=== PATIENT | female | born 1985 | race Caucasian/White ===

== ENCOUNTER 2020-02-10 18:40 | Emergency (ER) | payer BC, SELFPAY ==
[2020-02-10 18:45] VITALS: BP 155/70; PULSE 78; RESP 20; TEMP 36.8; O2SAT 99
[2020-02-10 18:59] VITALS: BP 155/70; PULSE 78; RESP 20; TEMP 36.8; O2SAT 99
--- NOTE | 2020-02-10 19:04 | ED.EAR ---
HPI - Ear Problem General Chief complaint: Ear Stated complaint: Ear infection Time Seen by Provider: 02/10/20 19:05 Source: patient and RN notes reviewed Mode of arrival: ambulatory Limitations: no limitations History of Present Illness HPI Narrative: 34-year-old female who presents to [facility] care with complaints of pain to her left ear with popping since the 06 of February. Patient states that she has bilateral ear tubes which were placed in 2018 and has some clear drainage from her ears usually and has not changed recently. She states that she takes daily Zyrtec, Montelukast, and Flonase nasal spray for sinus allergies. Patient denies any sore throat or any sinus congestion or cough. Patient states that her left ear has a constant dull ache has taken some Ibuprofen. MD Complaint: ear pain Location: left ear Duration: constant Severity: mild Discharge from ear: Reports yes - clear Associated symptoms ear: decreased hearing and rhinorrhea Treatment prior to arrival: none and other (Ibuprofen) Related Data Home Medications Medication Instructions Recorded Confirmed bupropion HCl 150 mg PO BID 02/10/20 02/10/20 fluoxetine 20 mg PO DAILY 02/10/20 02/10/20 fluticasone propionate 2 spray INTRANASAL DAILY 02/10/20 02/10/20 loratadine 10 mg PO DAILY 02/10/20 02/10/20 montelukast 10 mg PO DAILY 02/10/20 02/10/20 trazodone 50 mg PO DAILY 02/10/20 02/10/20 Allergies Allergy/AdvReac Type Severity Reaction Status Date / Time Penicillins Allergy Mild Rash Verified 02/10/20 18:54 Review of Systems Review of Systems: Narrative: CONSTITUTIONAL: Denies fever, chills, or sweats. EYES: Denies visual changes, redness, or discharge. ENT: Denies rhinorrhea, congestion, sore throat, positive for left otalgia. CARDIOVASCULAR: Denies chest pain, palpitations, or edema. RESPIRATORY: Denies cough or dyspnea. GASTROINTESTINAL: Denies abdominal pain, nausea, vomiting, or diarrhea. GENITOURINARY: Denies dysuria or hematuria. SKIN: Denies rash or itching. MUSCULOSKELETAL: Denies back pain, joint pain, or myalgia. NEUROLOGIC: Denies headache, numbness, or weakness. PSYCHIATRIC: Positive history of anxiety or depression. All systems reviewed & are unremarkable except as noted in HPI and below PMFSH Past Medical History Medical History (Updated 02/10/20 @ 19:45 by Yamileth Manuel NP) Allergic sinusitis Anxiety and depression Ear infection Insomnia Surgical History Surgical History (Updated 02/10/20 @ 19:05 by Yamileth Manuel NP) History of placement of ear tubes Social History Social History (Updated 02/10/20 @ 19:45 by Yamileth Manuel NP) Smoking status: Never smoker Alcohol intake: unknown Substance use: never Living arrangements: with family Gender identity (if verbalized by the patient): Female Comments At time of signature, agree with nursing past medical, surgical, social and family history. There is no relevant family history pertinent to the presenting complaint Exam Narrative: Exam Narrative: GENERAL: Well-appearing, well-nourished, and in no acute distress. HEAD: Normocephalic, atraumatic. EYES: PERRLA and EOMI. ENT: Nares clear, no rhinorrhea or epistaxis. Mucous membranes moist.TM's left normal with tube present without redness or noted drainage, left ear TM red with ear tube present clear drainage noted and pain stated by patient, throat pink with no exudates or lesions, no tonsil enlargement NECK: Supple.no lymphadenopathy CHEST: Clear to auscultation. No respiratory distress.SAO2 99% on room air. HEART: Regular rate and rhythm. No murmur heard. Normal peripheral pulses. ABDOMEN: Soft, nontender, nondistended, normal active bowel sounds. EXTREMITIES: Normal range of motion. No edema. SKIN: Warm, dry, no rash. NEURO: No focal deficits. Alert and oriented x3. Course Vital Signs Vital signs: Vital Signs Temperature 36.8 C 02/10/20 18:45 Pulse Rate 78 02/10/20 18:45 Respiratory Rate
== END 2020-02-10 19:25 | disposition home or self-care (01) ==
PROVIDERS: Emergency Provider Registered Nurse; PCP Internal Medicine
DX: H65.02 Acute serous otitis media, left ear (principal); F41.9 Anxiety disorder, unspecified; F32.9 Major depressive disorder, single episode, unspecified
CPT/HCPCS: 99213; G0463

== ENCOUNTER 2020-07-20 12:47 | Emergency (ER) | payer OTHER, BC, SELFPAY ==
[2020-07-20 12:56] VITALS: BP 128/73; PULSE 67; RESP 16; TEMP 37.6; O2SAT 100
--- NOTE | 2020-07-20 13:38 | ED.FEMALEGU ---
HPI - Female Genitourinary General Chief complaint: Urogenital-Female Stated complaint: pos uti Time Seen by Provider: 07/20/20 13:14 Source: patient and RN notes reviewed Mode of arrival: ambulatory Limitations: no limitations History of Present Illness HPI Narrative: Patient presents today complaining of a 2-day history of dysuria, urgency, cloudy urine, lower abdominal pressure, and today she noted blood on her toilet paper when she wiped. Denies fever or back pain. She has been taking Azo for symptoms with mild relief. She is a non-smoker. Last menstrual cycle was 06/28/2020. No recent antibiotic use. MD elicited complaint: dysuria Related Data Home Medications Medication Instructions Recorded Confirmed trazodone 50 mg PO DAILY 02/10/20 07/20/20 bupropion HCl [Wellbutrin SR] 200 mg PO BID 07/20/20 07/20/20 Allergies Allergy/AdvReac Type Severity Reaction Status Date / Time Penicillins Allergy Mild Rash Verified 07/20/20 12:56 Review of Systems Review of Systems: Narrative: CONSTITUTIONAL: Denies body aches, fever, chills, or sweats. EYES: Denies visual changes, redness, or discharge. ENT: Denies rhinorrhea, congestion, sore throat, or otalgia. CARDIOVASCULAR: Denies chest pain, palpitations, or edema. RESPIRATORY: Denies cough or dyspnea. GASTROINTESTINAL: Denies abdominal pain, nausea, vomiting, or diarrhea. GENITOURINARY: + Dysuria, urgency, cloudy urine, hematuria, lower abdominal pressure SKIN: Denies rash, itching, or wounds. MUSCULOSKELETAL: Denies back pain, joint pain, or myalgia. NEUROLOGIC: Denies headache, numbness, tingling, or weakness. PSYCH: Denies depression or anxiety. [facility] Past Medical History Medical History (Updated 07/20/20 @ 13:41 by Kathrine Severino, RA, BC) Allergic sinusitis Anxiety and depression Delivery with history of Ear infection Insomnia Surgical History Surgical History History of placement of ear tubes Social History Social History Smoking status: Never smoker Alcohol intake: unknown Substance use: never Gender identity (if verbalized by the patient): Female Exam Narrative: Exam Narrative: GENERAL: Well-appearing, well-nourished, and in no acute distress. HEAD: Normocephalic, atraumatic. EYES: EOMI. No redness or drainage. Conjunctivae normal. ENT: Mucous membranes pink and moist. NECK: Normal AROM. CHEST: No respiratory distress. Clear to auscultation. HEART: Regular rate and rhythm. No murmur appreciated. Normal peripheral pulses. ABDOMEN: Soft, nontender, nondistended, normal active bowel sounds.-CVAT MUSCULOSKELETAL: No bony tenderness. EXTREMITIES: Normal range of motion. No edema. SKIN: Warm, dry, no rash. Capillary refill normal. Normal skin turgor. NEURO: No focal deficits. Alert and oriented x3. Gait steady. PSYCH: Normal affect. No signs of depression or anxiety. Course Vital Signs Vital signs: Vital Signs Temperature 99.6 F 07/20/20 12:56 Pulse Rate 67 07/20/20 12:56 Respiratory Rate 16 07/20/20 12:56 Blood Pressure 128/73 07/20/20 12:56 Pulse Oximetry 100 07/20/20 12:56 Temperature 99.6 F 07/20/20 12:56 Pulse Rate 67 07/20/20 12:56 Respiratory Rate 16 07/20/20 12:56 Blood Pressure 128/73 07/20/20 12:56 Pulse Oximetry 100 07/20/20 12:56 Reviewed. Pt has been instructed to follow up with her PCP regarding her elevated blood pressure today. MDM - Female Genitourinary Differential Diagnosis Differential diagnosis: Likely urinary tract infection, vaginitis, cystitis and other (Interstitial cystitis) Lab Data Attestation: I reviewed the patient's lab results. Labs: Urine Glucose Negative Reference Range: Negative Urine Bilirubin Negative
== END 2020-07-20 13:48 | disposition home or self-care (01) ==
PROVIDERS: Emergency Provider Nurse Practitioner; PCP Internal Medicine
DX: N39.0 Urinary tract infection, site not specified (principal); F41.9 Anxiety disorder, unspecified; F32.9 Major depressive disorder, single episode, unspecified
CPT/HCPCS: 81003; 87086; 99213; G0463

== ENCOUNTER 2020-12-24 08:15 | Emergency (ER) | payer OTHER, SELFPAY ==
[2020-12-24 08:21] VITALS: BP 108/66; PULSE 66; RESP 16; TEMP 36.6; O2SAT 99
--- NOTE | 2020-12-24 08:26 | ED.EAR ---
HPI - Ear Problem General Chief complaint: Ear Stated complaint: ear pain left ear History of Present Illness HPI Narrative: This is a 35-year-old female comes in complaining of ear pain states that not being able to hear is driving her crazy. Patient states that she has tubes in her ears she is already has some hearing loss but she is it is driving her crazy w not being able to hear. Related Data Home Medications Medication Instructions Recorded Confirmed bupropion HCl 200 mg PO BID 12/24/20 12/24/20 trazodone 50 mg PO DAILY 12/24/20 12/24/20 Allergies Allergy/AdvReac Type Severity Reaction Status Date / Time Penicillins Allergy Mild Rash Verified 07/20/20 12:56 Review of Systems Review of Systems: ear pain , hearing loss All systems reviewed & are unremarkable except as noted in HPI and below PMFSH Past Medical History Medical History (Updated 12/24/20 @ 08:31 by Karen Mojica, JAZ) Allergic sinusitis Anxiety and depression Delivery with history of Ear infection Insomnia Surgical History Surgical History History of placement of ear tubes Social History Social History Smoking status: Never smoker Alcohol intake: unknown Substance use: never Gender identity (if verbalized by the patient): Female Comments Review of systems at time as signature, I have reviewed and agree with nursing past medical, social, surgical and family history. Please see nursing chart for further information. There is no relevant family history pertinent to the presenting complaint. Exam Narrative: GENERAL:Well-appearing, well-nourished, and in no acute distress. HEAD:Normocephalic, EYES: PERRLA ENT: Nares clear, no rhinorrhea or epistaxis. bilateral ear tubes noted left ear has auditory canal edema with erythma with white pus like noted area surrounding the tubes and ear. CHEST: Clear to auscultation. No respiratory distress. HEART: Regular rate and rhythm.. ABDOMEN: Soft, nontender, nondistended, normal active bowel sounds. EXTREMITIES: Normal range of motion. No edema. SKIN: Warm, dry, no rash. NEURO: No focal deficits. Alert and oriented x3. Course Vital Signs Vital signs: Vital Signs Temperature 97.8 F 12/24/20 08:21 Pulse Rate 66 12/24/20 08:21 Respiratory Rate 16 12/24/20 08:21 Blood Pressure 108/66 12/24/20 08:21 Pulse Oximetry 99 12/24/20 08:21 Temperature 97.8 F 12/24/20 08:21 Pulse Rate 66 12/24/20 08:21 Respiratory Rate 16 12/24/20 08:21 Blood Pressure 108/66 12/24/20 08:21 Pulse Oximetry 99 12/24/20 08:21 Medical Decision Making Vital Signs Vital Signs: Vital Signs Temperature 97.8 F 12/24/20 08:21 Pulse Rate 66 12/24/20 08:21 Respiratory Rate 16 12/24/20 08:21 Blood Pressure 108/66 12/24/20 08:21 Pulse Oximetry 99 12/24/20 08:21 Temperature 97.8 F 12/24/20 08:21 Pulse Rate 66 12/24/20 08:21 Respiratory Rate 16 12/24/20 08:21 Blood Pressure 108/66 12/24/20 08:21 Pulse Oximetry 99 12/24/20 08:21 Discharge Plan Discharge Clinical Impression: Otitis externa Qualifiers: Otitis externa type: unspecified type Chronicity: chronic Laterality: right Qualified Code(s): H60.61 - Unspecified chronic otitis externa, right ear Patient Disposition: Home, Self-Care Condition: Stable Instructions: Antibiotic Form, Swimmer's Ear (ED), Hearing Loss (ED), Earache (ED) Prescriptions: New ciprofloxacin-dexamethasone [Ciprodex] 0.3-0.1 % drops,suspension 4 drp LEFT EAR Q12H 7 Days Qty: 7.5 RF: 0 No Action bupropion HCl 200 mg tablet sustained-release 12 hr 200 mg PO BID RF: 0 trazodone 50 mg tablet 50 mg PO DAILY RF: 0 Follow-up/Referrals: [facility],MD Jason [Primary Care Provider] - Stand Alone Forms: Work/School Release IP Time of Disposition:
[2020-12-24 08:27] VITALS: BP 108/66; PULSE 66; RESP 16; TEMP 36.6; O2SAT 99
== END 2020-12-24 08:44 | disposition home or self-care (01) ==
PROVIDERS: Emergency Provider Nurse Practitioner Family; PCP Internal Medicine
DX: H60.62 Unspecified chronic otitis externa, left ear (principal); F41.9 Anxiety disorder, unspecified; F32.9 Major depressive disorder, single episode, unspecified
CPT/HCPCS: 99213; G0463

== ENCOUNTER 2022-05-13 19:09 | Emergency (ER) | payer OTHER, SELFPAY ==
[2022-05-13 19:16] VITALS: BP 118/63; PULSE 76; RESP 20; TEMP 36.7; O2SAT 100
--- NOTE | 2022-05-13 19:24 | ED.URI ---
HPI - URI/Sore Throat General Chief Complaint: Upper Respiratory Infection Stated Complaint: sore throat Time Seen by Provider: 05/13/22 19:15 History of Present Illness HPI Narrative: Patient is a 36-year-old female presents to urgent care with complaints of a sore throat. Patient states that her throat started hurting last night. Denies any other upper respiratory complaints. Denies any fever, nausea or vomiting. Patient has taken Tylenol for her pain. No other acute complaints. No acute distress noted. Patient aware of the plan of care. Some parts of this dictation were generated by voice recognition software and may contain typographical and/or grammatical inaccuracies. Related Data Home Medications Medication Instructions Recorded Confirmed bupropion HCl 200 mg tablet,12 hr 200 mg PO BID 12/24/20 12/24/20 sustained-release trazodone 50 mg tablet 50 mg PO DAILY 12/24/20 12/24/20 Allergies Allergy/AdvReac Type Severity Reaction Status Date / Time Penicillins Allergy Mild Rash Verified 07/20/20 12:56 sertraline [From Zoloft] Allergy Hives Verified 05/13/22 19:17 Review of Systems Review of Systems: CONSTITUTIONAL: Denies fever, chills, or sweats. EYES: Denies visual changes, redness, or discharge. ENT: Denies rhinorrhea, congestion, otalgia. Reports of sore throat CARDIOVASCULAR: Denies chest pain, palpitations, or edema. RESPIRATORY: Denies cough or dyspnea. GASTROINTESTINAL: Denies abdominal pain, nausea, vomiting, or diarrhea. GENITOURINARY: Denies dysuria or hematuria. SKIN: Denies rash or itching. MUSCULOSKELETAL: Denies back pain, joint pain, or myalgia. NEUROLOGIC: Denies headache, numbness, or weakness. All other systems reviewed are negative, except as documented in HPI. [facility] Past Medical History Medical History (Updated 05/13/22 @ 19:28 by RA Cheng) Allergic sinusitis Anxiety and depression Delivery with history of Ear infection Insomnia Surgical History Surgical History History of placement of ear tubes Social History Social History Smoking status: Never smoker Alcohol intake: unknown Substance use: never Living arrangements: with family Gender identity (if verbalized by the patient): Female Comments At the time of my signature, I reviewed and agree with the nursing past medical, surgical, social, and family history. There is no relevant family history pertinent to the patient complaint. Exam Narrative: GENERAL: This is a well-nourished, well-developed patient, in no apparent distress. HEAD: normocephalic, atraumatic. EYES: PERRL. Sclera clear/white. Vision is grossly intact. EARS: External ears normal, auditory canals clear and without drainage, TMs normal without perforation. Hearing grossly intact. NOSE: External nose normal with no obvious nasal discharge, nares without redness, no rhinorrhea. THROAT: Mucous membranes moist, mild bilateral tonsillar edema without exudate. Moderate postnasal drainage. Moderate erythema to posterior oropharynx. NECK: Neck supple RESPIRATORY: Clear to auscultation. Breath sounds equal bilaterally. No wheezes, rales, or rhonchi. SKIN: warm, intact with no suspicious lesions or rash, good texture and turgor. NEURO: awake, alert, and oriented to person, place and time. There were no obvious focal neurologic abnormalities. EXTREMITIES: No clubbing, cyanosis, or edema. Course Course Level of Care: Express Care Visit Vital Signs Vital signs: Vital Signs Temperature 98.0 F 05/13/22 19:16 Pulse Rate 76 05/13/22 19:16 Respiratory Rate 20 05/13/22 19:16 Blood Pressure 118/63 05/13/22 19:16 Pulse Oximetry 100 05/13/22 19:16 Oxygen Delivery Room Air 05/13/22 19:16 Temperature 98.0 F 05/13/22 19:16 Pulse Rate 76 05/13/22 19:16 Respiratory Rate 20 05/13/22 19:1
== END 2022-05-13 19:35 | disposition home or self-care (01) ==
PROVIDERS: Emergency Provider Nurse Practitioner Family; PCP Internal Medicine
DX: J02.0 Streptococcal pharyngitis (principal); F41.9 Anxiety disorder, unspecified; F32.A Depression, unspecified
CPT/HCPCS: 87880; 99213; G0463